=== PATIENT | male | born 1970 | race Caucasian/White ===

== ENCOUNTER 2024-04-28 13:47 | Observation (INO) | payer BC ==
--- NOTE | 2024-04-28 14:26 | ED ---
General Adult HPI - General Chief complaint: Chest Pain Stated complaint: chest pain Time Seen by Provider: 04/28/24 14:13 Source: EMS Mode of arrival: EMS Limitations: no limitations - History of Present Illness Initial comments: Dictation was produced using [employer] dictation software. please excuse any grammatical, word or spelling errors. Chief Complaint: 54-year-old male presents to the emergency department for chest pain History of Present Illness: Patient is a 54-year-old male presents to the emergency department for chest pain. Patient extensive cardiac history including bypass graft and failed grafting requiring stent placement. States that he had some sharp substernal pressure that caused some tightness in his jaw. States that reminds him of a previous heart attack he has had. Patient took a couple nitro which alleviated some of the pain however symptoms were strong enough that he came to the emergency room. Complains of some associated nausea. No diaphoresis. The ROS documented in this emergency department record has been reviewed and confirmed by me. Those systems with pertinent positive or negative responses have been documented in the HPI. All other systems are other negative and/or noncontributory. - Related Data Home Medications Medication Instructions Recorded Confirmed Aspirin EC [Ecotrin] 325 mg PO DAILY 04/28/24 04/28/24 Clopidogrel [Plavix] 75 mg PO DAILY 04/28/24 04/28/24 Ezetimibe [Zetia] 10 mg PO DAILY 04/28/24 04/28/24 Isosorbide Dinitrate [Isordil] 10 mg PO DIRECTED 04/28/24 04/28/24 Metoprolol Tartrate [Lopressor] 25 mg PO BID 04/28/24 04/28/24 Nitroglycerin Sl Tabs [Nitrostat] 0.4 mg SUBLINGUAL Q5M PRN 04/28/24 04/28/24 Rosuvastatin Calcium [Crestor] 40 mg PO DAILY 04/28/24 04/28/24 amLODIPine [Norvasc] 2.5 mg PO DAILY 04/28/24 04/28/24 Allergies Allergy/AdvReac Type Severity Reaction Status Date / Time No Known Allergies Allergy Verified 04/28/24 14:18 Review of Systems ROS Statement: Those systems with pertinent positive or pertinent negative responses have been documented in the HPI. ROS Other: All systems not noted in ROS Statement are negative. Past Medical History Additional Past Medical History / Comment(s): stent placed 04/2024. open heart sx 01/2024 History of Any Multi-Drug Resistant Organisms: None Reported Past Psychological History: No Psychological Hx Reported Smoking Status: Never smoker Past Alcohol Use History: Occasional Past Drug Use History: None Reported General Exam - General Exam Comments Initial Comments: PHYSICAL EXAM: General Impression: Alert and oriented x3, not in acute distress HEENT: Normocephalic atraumatic, extra-ocular movements intact, pupils equal and reactive to light bilaterally, mucous membranes moist. Cardiovascular: Heart regular rate and rhythm Chest: Able to complete full sentences, no retractions, no tachypnea Abdomen: abdomen soft, non-tender, non-distended, no organomegaly Musculoskeletal: Pulses present and equal in all extremities, no peripheral edema Motor: no focal deficits noted Neurological: CN II-XII grossly intact, no focal motor or sensory deficits noted Skin: Intact with no visualized rashes Psych: Normal affect and mood Limitations: no limitations Course Vital Signs 04/28/24 04/28/24 04/28/24 13:49 14:52 15:43 Temperature 98.3 F Pulse Rate 68 63 71 Respiratory 16 18 18 Rate Blood Pressure 115/90 124/74 118/85 O2 Sat by Pulse 100 99 98 Oximetry EKG Findings - EKG Comments: EKG Findings:: My EKG interpretation: Ventricular rate 60, sinus rhythm, right bundle branch block,. 179, QRS 125, QTc 451. No MI prolongation, no QTC prolongation, no ST or T-wave changes noted. Overall, this EKG is unremarkable Medical Decision Making - Medical Decision Making Was pt. sent in by a medical professional or institution (, PA, DECAL APPLIER, urgent care, hospital, or [facility]...) When possible be specific @ -No Did you speak to anyone other than the patient for history (EMS, parent, family, police, friend...)? What history was obtained from this source @ -No Did you review nursing and triage notes (agree or disagree)? Why? @ -I reviewed and agree with nursing and triage notes Were old charts reviewed (outside hosp., previous admission, EMS record, old EKG, old radiological studies, urgent care reports/EKG's, [facility] records)? Report findings @ -No old charts were reviewed Differential Diagnosis (chest pain, altered mental status, abdominal pain women, abdominal pain men, vaginal bleeding, musculoskeletal, weakness, fever, dyspnea, syncope, headache, dizziness, GI bleed, back pain, seizure, CVA, palpatations, mental health)? @ -Differential Chest Pain: Stable Angina, Unstable Angina, STEMI, NSTEMI Aortic Dissection, Pneumothorax, Musculoskeletal, Esophageal Spasm GERD, Cholecystitis, Pancreatitis, Zoster, this is not meant to be an all-inclusive list. EKG interpreted by me (3pts min.). @ -None done X-rays interpreted by me (1pt min.). @ -Chest x-ray shows no acute processes CT interpreted by me (1pt min.). @ -None done U/S interpreted by me (1pt. min.). @ -None done What testing was considered but not performed or refused? (CT, X-rays, U/S, labs)? Why? @ -None What meds were considered but not given or refused? Why? @ -None Was smoking cessation discussed for >3mins.? @ -No Were there social determinants of health that impacted care today? How? (Homelessness, low income, unemployed, alcoholism, drug addiction, transportation, low edu. Level, literacy, decrease access to med. care, intermediate, rehab)? @ -No Was there de-escalation of care discussed even if they declined (Discuss DNR or withdrawal of care, Hospice)? DNR status @ -No What co-morbidities impacted this encounter? (DM, HTN, Smoking, COPD, CAD, Cancer, CVA, ARF, Chemo, Hep., AIDS, mental health diagnosis, sleep apnea, morbid obesity)? @ -Coronary artery disease Was patient admitted / discharged? Hospital course, mention meds given and route, prescriptions, significant lab abnormalities, going to OR and other pertinent info. @ -See above Did you discuss the management of the patient with other professionals (professionals i.e. , PA, DECAL APPLIER, lab, RT, psych nurse, social media analyst, community aide, teacher, nuclear medicine officer, case making machine operator)? Give summary @ -54-year-old male with extensive cardiac history presents to the emergency department chest pain. Symptoms concerning for acute coronary syndrome. Vital signs stable. EKG is unremarkable. Laboratory evaluation obtained. Labs within acceptable limits. Troponin is negative. Patient given aspirin. Will be admitted observation with consultation cardiology Was critical care preformed (if so, how long)? @ -No Undiagnosed new problem with uncertain prognosis? @ -No Drug Therapy requiring intensive monitoring for toxicity (Heparin, Nitro, Insulin, Cardizem)? @ -No Were any procedures done? @ -No Diagnosis/symptom? Acute, or Chronic, or Acute on Chronic? Uncomplicated (without systemic symptoms) or Complicated (systemic symptoms)? @ -Chest pain Side effects of treatment? @ -No Exacerbation, Progression, or Severe Exacerbation? @ -No Poses a threat to life or bodily function? How? (Chest pain, [place], [place], pneumonia, PE, COPD, DKA, ARF, appy, cholecystitis, CVA, Diverticulitis, Homicidal, Suicidal, threat to staff... and all critical care pts) @ -yes - Lab Data Result diagrams: 04/28/24 14:23 04/28/24 14:23 Lab Results 04/28/24 04/28/24 04/28/24 Range/Units 14:23 14:23 14:23 WBC 6.2 (3.8-10.6) k/uL RBC 4.77 (4.30-5.90) m/uL Hgb 13.6 (13.0-17.5) gm/dL Hct 40.0 (39.0-53.0) % MCV 83.8 (80.0-100.0) fL MCH 28.5 (25.0-35.0) pg MCHC 34.0 (31.0-37.0) g/dL RDW 14.2 (11.5-15.5) % Plt Count 174 (150-450) k/uL MPV 8.8 Neutrophils % 54 % Lymphocytes % 34 % Monocytes % 7 % Eosinophils % 2 % Basophils % 0 % Neutrophils # 3.3 (1.3-7.7) k/uL Lymphocytes # 2.1 (1.0-4.8) k/uL Monocytes # 0.4 (0-1.0) k/uL Eosinophils # 0.1 (0-0.7) k/uL Basophils # 0.0 (0-0.2) k/uL PT 11.5 (10.0-12.5) sec INR 1.1 (<1.2) APTT 26.4 (22.0-30.0) sec Sodium 137 (137-145) mmol/L Potassium 3.9 (3.5-5.1) mmol/L Chloride 106 (98-107) mmol/L Carbon Dioxide 24 (22-30) mmol/L Anion Gap 7 mmol/L BUN 15 (9-20) mg/dL Creatinine 0.92 (0.66-1.25) mg/dL Est GFR (CKD-EPI)AfAm >90 (>60 ml/min/1.73 sqM) Est GFR (CKD-EPI)NonAf >90 (>60 ml/min/1.73 sqM) Glucose 89 (74-99) mg/dL Calcium 9.1 (8.4-10.2) mg/dL Magnesium 2.0 (1.6-2.3) mg/dL Total Bilirubin 0.8 (0.2-1.3) mg/dL AST 34 (17-59) U/L ALT 62 H (4-49) U/L Alkaline Phosphatase 67 (38-126) U/L Troponin I (0.000-0.034) ng/mL Total Protein 7.1 (6.3-8.2) g/dL Albumin 4.4 (3.5-5.0) g/dL 04/28/24 Range/Units 14:23 WBC (3.8-10.6) k/uL RBC (4.30-5.90) m/uL Hgb (13.0-17.5) gm/dL Hct (39.0-53.0) % MCV (80.0-100.0) fL MCH (25.0-35.0) pg MCHC (31.0-37.0) g/dL RDW (11.5-15.5) % Plt Count (150-450) k/uL MPV Neutrophils % % Lymphocytes % % Monocytes % % Eosinophils % % Basophils % % Neutrophils # (1.3-7.7) k/uL Lymphocytes # (1.0-4.8) k/uL Monocytes # (0-1.0) k/uL Eosinophils # (0-0.7) k/uL Basophils # (0-0.2) k/uL PT (10.0-12.5) sec INR (<1.2) APTT (22.0-30.0) sec Sodium (137-145) mmol/L Potassium (3.5-5.1) mmol/L Chloride (98-107) mmol/L Carbon Dioxide (22-30) mmol/L Anion Gap mmol/L BUN (9-20) mg/dL Creatinine (0.66-1.25) mg/dL Est GFR (CKD-EPI)AfAm (>60 ml/min/1.73 sqM) Est GFR (CKD-EPI)NonAf (>60 ml/min/1.73 sqM) Glucose (74-99) mg/dL Calcium (8.4-10.2) mg/dL Magnesium (1.6-2.3) mg/dL Total Bilirubin (0.2-1.3) mg/dL AST (17-59) U/L ALT (4-49) U/L Alkaline Phosphatase (38-126) U/L Troponin I <0.012 (0.000-0.034) ng/mL Total Protein (6.3-8.2) g/dL Albumin (3.5-5.0) g/dL Disposition Clinical Impression: Chest pain Disposition: ADMITTED IP TO THIS HOSP Condition: Fair Referrals: Juan Padilla MD [Primary Care Provider] - 1-2 days Decision Time: 15:51
[2024-04-28 14:30] LABS: Basophils % (A) 0 %; Eosinophils # (A) 0.1 k/uL (0-0.7); Eosinophils % (A) 2 %; HGB 13.6 gm/dL (13.0-17.5); Lymphocytes # (A) 2.1 k/uL (1.0-4.8); Lymphocytes % (A) 34 %; MCH 28.5 pg (25.0-35.0); MCV 83.8 fL (80.0-100.0); Mean Platelet Volume 8.8; Monocytes # (A) 0.4 k/uL (0-1.0); Monocytes % (A) 7 %; Neutrophils # (A) 3.3 k/uL (1.3-7.7); Neutrophils % (A) 54 %; Platelet Count 174 k/uL (150-450); RBC 4.77 m/uL (4.30-5.90); RDW 14.2 % (11.5-15.5); WBC 6.2 k/uL (3.8-10.6)
[2024-04-28] MEDS: NITROGLYCERIN OINT 1 INCH/GM PACKET TOPICAL STA (14:33)
[2024-04-28 14:43] LABS: INR 1.1 (<1.2); Partial Thromboplastin Time 26.4 sec (22.0-30.0); Prothrombin Time 11.5 sec (10.0-12.5)
--- NOTE | 2024-04-28 14:45 | XR ---
EXAMINATION TYPE: XR chest 2V DATE OF EXAM: 04/28/2024 COMPARISON: NONE CLINICAL INDICATION: Male, 54 years old with history of Chest Pain; , TECHNIQUE: XR chest 2V views of the chest. FINDINGS: The lungs are clear and there is no pneumothorax, pleural effusion, or focal pneumonia. Heart size normal and no overt failure. Osseous structures demonstrate hypertrophic and degenerative changes of the spine. Post median sternotomy changes. Atrial appendage clip. Biapical pleural thickening. IMPRESSION: 1. No acute process. [facility], , 04/28/2024 2:42 PM
[2024-04-28 14:59] LABS: ALT 62 U/L (4-49); AST 34 U/L (17-59); African American GFR (CKD) >90 (>60 ml/min/1.73 sqM); Albumin 4.4 g/dL (3.5-5.0); Alkaline Phosphatase 67 U/L (38-126); Anion Gap 7 mmol/L; Blood Urea Nitrogen 15 mg/dL (9-20); Calcium 9.1 mg/dL (8.4-10.2); Carbon Dioxide 24 mmol/L (22-30); Chloride 106 mmol/L (98-107); Glucose 89 mg/dL (74-99); Non-African American GFR(CKD) >90 (>60 ml/min/1.73 sqM); Potassium 3.9 mmol/L (3.5-5.1); Sodium 137 mmol/L (137-145); Total Bilirubin 0.8 mg/dL (0.2-1.3); Total Protein 7.1 g/dL (6.3-8.2)
[2024-04-28] MEDS ORDERED: NITROGLYCERIN SL TABS 0.4 MG TAB SUBLINGUAL PRN ×2 (15:48→16:15)
--- NOTE | 2024-04-28 16:23 | P.HPIM ---
History of Present Illness Chief Complaint: Chest pain This is a 54-year-old male with past medical history of coronary artery disease status post CABG performed in 2023, status post 2 failed grafts requiring angiography with PCI deployment x 2, hyperlipidemia, hypertension presents the emergency department due to unremitting chest pain. Patient states he was walking with his son, not to extremity was of the task for him and started developing anterior chest pain radiating to his jaw, it was substernal pressure- like sensation. Patient took 3 nitroglycerin tablets without any relief. His daughter started driving him to the emergency department but the pain got so bad that they called EMS who arrived and took him to the hospital for further evaluation. He has a very significant cardiac history given his age. He states that he had a CABG earlier in the year, underwent cardiac rehab and was doing well. Couple of months ago he started having chest pain, was found through a coronary angiogram that he had to graft from his CABG that failed necessitating PCI's. He has been compliant with all his medication, does not miss any doses. He just saw his superintendent maintenance airports on Friday who prescribed him isosorbide dinitrate but he has not been able to pick it up yet. No nausea no vomiting no fevers no chills. Review of Systems Review of systems negative except was pertinent positive in HPI Past Medical History Additional Past Medical History / Comment(s): stent placed 04/2024. open heart sx 01/2024 History of Any Multi-Drug Resistant Organisms: None Reported Past Psychological History: No Psychological Hx Reported Smoking Status: Never smoker Past Alcohol Use History: Occasional Past Drug Use History: None Reported Medications and Allergies Home Medications Medication Instructions Recorded Confirmed Type Aspirin EC [Ecotrin] 325 mg PO DAILY 04/28/24 04/28/24 History Clopidogrel [Plavix] 75 mg PO DAILY 04/28/24 04/28/24 History Ezetimibe [Zetia] 10 mg PO DAILY 04/28/24 04/28/24 History Isosorbide Dinitrate [Isordil] 10 mg PO DIRECTED 04/28/24 04/28/24 History Metoprolol Tartrate [Lopressor] 25 mg PO BID 04/28/24 04/28/24 History Nitroglycerin Sl Tabs [Nitrostat] 0.4 mg SUBLINGUAL Q5M PRN 04/28/24 04/28/24 History Rosuvastatin Calcium [Crestor] 40 mg PO DAILY 04/28/24 04/28/24 History amLODIPine [Norvasc] 2.5 mg PO DAILY 04/28/24 04/28/24 History Allergies Allergy/AdvReac Type Severity Reaction Status Date / Time No Known Allergies Allergy Verified 04/28/24 14:18 Physical Exam Vitals: Vital Signs Temp Pulse Resp BP Pulse Ox 04/28/24 15:43 71 18 118/85 98 04/28/24 14:52 63 18 124/74 99 04/28/24 13:49 98.3 F 68 16 115/90 100 Intake and Output 04/28/24 04/28/24 04/28/24 06:59 14:59 22:59 Other: Weight 102.058 kg General: [nontoxic], [no distress], [appears at stated age] Derm: [warm], [dry] Head: [atraumatic], [normocephalic], [symmetric] Eyes: [EOMI], [no lid lag], [anicteric sclera] Mouth: [no lip lesion], [mucus membranes moist] Cardiovascular: [S1S2 reg], [no murmur], [positive posterior tibial pulse bilateral], anterior chest wall scar from CABG well-healing Lungs: [CTA bilateral], [no rhonchi, no rales] , [no accessory muscle use] Abdominal: [soft], [ nontender to palpation], [no guarding], [no appreciable organomegaly] Ext: [no gross muscle atrophy], [no edema], [no contractures] Neuro: [ CN II-XI grossly intact], [no focal neuro deficits] Psych: [Alert], [oriented], [appropriate affect] Results CBC & Chem 7: 04/28/24 14:23 04/28/24 14:23 Labs: Abnormal Lab Results - Last 24 Hours (Table) 04/28/24 Range/Units 14:23 ALT 62 H (4-49) U/L Assessment and Plan Plan: Anginal chest pain Coronary artery disease status post CABG Recent occlusion/failure of 2 grafts from CABG, requiring 2 stent placements Hyperlipidemia Essential hypertension Consult placed to cardiology Reviewed EKG, noted right bundle branch block, unclear if finding is new Restart home medication including Zetia, atorvastatin, full dose aspirin, Plavix Initiated isosorbide dinitrate to be taken daily Nitroglycerin tabs ordered as needed chest pain Chest pain has greatly improved, still having some neck discomfort Heparin for DVT prophylaxis Troponins are negative, I do not believe the patient needs a heparin drip If chest pain returns, may benefit from a nitro drip Continuous monitoring of vital signs Cardiac telemetry
[2024-04-28] MEDS: ASPIRIN 81 MG PO STA (18:20)
[2024-04-28] MEDS: METOPROLOL TARTRATE 25 MG TAB PO SCH (20:10)
[2024-04-28] MEDS: EZETIMIBE 10 MG TAB PO SCH (20:10)
[2024-04-28] MEDS: ATORVASTATIN 80 MG TAB PO SCH (20:10)
[2024-04-28] MEDS: HEPARIN SODIUM,PORCINE 5,000 UNIT/ML 1 ML VIAL SQ SCH (20:10)
[2024-04-28] MEDS: ISOSORBIDE DINITRATE 10 MG TAB PO SCH (20:10)
[2024-04-28] MEDS: ACETAMINOPHEN TAB 325 MG TAB PO STA (21:41)
[2024-04-29] MEDS ORDERED: ASPIRIN 325 MG TAB PO SCH (09:00)
[2024-04-29] MEDS: amLODIPine 2.5 MG TAB PO SCH (09:12)
[2024-04-29] MEDS: ACETAMINOPHEN TAB 325 MG TAB PO PRN (09:12)
[2024-04-29] MEDS: CLOPIDOGREL 75 MG TAB PO SCH (09:12)
[2024-04-29] MEDS: ASPIRIN 325 MG TAB PO SCH (09:12)
[2024-04-29 10:24] LABS: Chol/HDL Ratio 2.43 Ratio; LDL Cholesterol,Calculated 40.1 mg/dL (0.0-131.0)
--- NOTE | 2024-04-29 13:39 | P.PN ---
Subjective Progress Note Date: 04/29/24 Principal diagnosis: Chest pain The patient is comfortable not currently painful Objective - Vital Signs Vital signs: Vital Signs Temp 97.7 F 04/29/24 07:00 Pulse 76 04/29/24 07:00 Resp 16 04/29/24 07:00 BP 123/76 04/29/24 07:00 Pulse Ox 98 04/29/24 11:36 FiO2 21 04/29/24 11:36 Intake & Output 04/28/24 04/29/24 04/29/24 18:59 06:59 18:59 Intake Total 480 Balance 480 Weight 102.058 kg Intake: Oral 480 Other: Voiding Method Toilet Toilet # Voids 2 - Constitutional General appearance: Present: no acute distress - Respiratory Respiratory: bilateral: CTA - Cardiovascular Rhythm: regular - Gastrointestinal General gastrointestinal: Present: normal bowel sounds - Labs CBC & Chem 7: 04/28/24 14:23 04/28/24 14:23 Labs: Abnormal Lab Results - Last 24 Hours (Table) 04/28/24 Range/Units 14:23 ALT 62 H (4-49) U/L Assessment and Plan (1) Chest pain Narrative/Plan: Cardiology still pending, Nitro prn, on isosorbide dinitrate Current Visit: Yes Status: Acute Code(s): R07.9 - CHEST PAIN, UNSPECIFIED SNOMED Code(s): 28934736 Plan: Chest pain controlled, await further input from Cardiology
--- NOTE | 2024-04-29 13:47 | P.CRDCN ---
History of Present Illness Consult date: 04/29/24 Requesting physician: Max Schafer Reason for Consult (text): chest pain Chief complaint: chest pain History of present illness: This is a pleasant 54-year-old male patient of Dr. Lawson at [facility] with past medical history of CAD with CABG in December of this year who has had continued chest discomfort and jaw pain and recently underwent cardiac catheterization on April 20 at which time he underwent PCI of one of the grafts and told to have some blockage not requiring intervention of one of the other grafts. His CABG was 3 vessels with a radial graft 1 vein graft and a MORALES. The exact details are not available to me this was done at [place] on with Dr. [place]. He followed up with his bacteriologist dairy on Friday of this week at which time he was prescribed an oral nitrate but had not yet received the prescription. Yesterday due to running errands he did not take his medications in the morning. He developed sudden onset chest discomfort that was pretty severe. He took nitroglycerin x 3 without relief and was driving to the hospital but subsequently stopped and called EMS due to worsening pain. EKG on admission showed sinus mechanism with right bundle branch block, no previous EKG available for comparison. Troponins have been negative x 3. At the time of my exam he has chest pain-free. Diagnostics -EKG: Sinus mechanism with right bundle jamey block -Chest x-ray: No acute process -Laboratory studies: Unremarkable except for ALT 62, troponins negative x 3, LDL 40.1. -Home cardiac medications: Aspirin 325 mg p.o. daily, amlodipine 2.5 mg p.o. daily, rosuvastatin 40 mg p.o. daily, metoprolol tartrate 25 mg p.o. twice daily, Plavix 75 mg daily, ezetimibe 10 mg daily and isosorbide dinitrate 10 mg p.o. twice daily which he had not started yet. -Prior cardiac testing including CABG report are unavailable to me Review Of Systems: At the time of my exam: CONSTITUTIONAL: Denies fever or chills. HEENT: Denies blurred vision, vision changes. Complains of headache CARDIOVASCULAR: Denies chest pain. Denies orthopnea. Denies PND. Denies palpitations, dizziness, or syncope. RESPIRATORY: Denies shortness of breath, wheezing, or cough. Denies hemoptysis. GASTROINTESTINAL: Denies abdominal pain. Denies nausea or vomiting. Denies bleeding. HEMATOLOGIC: Denies bleeding disorders. GENITOURINARY: Denies hematuria. SKIN: Denies puritis. Denies rash. PHYSICAL EXAMINATION: This is a 54-year-old male in no apparent distress at the time of my examination. VITAL SIGNS: Reviewed. HEENT: Head is atraumatic, normocephalic. Pupils are equal, round. Sclerae anicteric. Conjunctivae are clear. Mucous membranes of the mouth are moist. Neck is supple. There is no elevated jugular venous pressure. No carotid bruit is heard. CHEST EXAMINATION: Clear to auscultation bilaterally. No wheezes rales or rhonchi. Respirations even and nonlabored. HEART EXAMINATION: Heart regular, positive S1 and S2. No S3. No S4. No clicks, rubs or murmurs. ABDOMEN: Soft, nontender. Bowel sounds are heard. No organomegaly noted. EXTREMITIES: 2+ peripheral pulses with no evidence of peripheral edema and no calf tenderness noted. NEUROLOGIC EXAMINATION: Patient is awake, alert and oriented x3. Assessment: 1. Chest pain, acute coronary event has been ruled out, troponins negative x 3 2. CAD with prior CABG x 3 and subsequent stenting on the of this month 3. Hypertension 4. Hyperlipidemia Plan: From cardiology's perspective start patient on oral nitrate as planned by primary bacteriologist dairy. The patient is scheduled to see his primary bacteriologist dairy on the . He will keep this appointment. At this time there is no indication for further cardiac workup. Thank you kindly for this consultation. Nurse practitioner note has been reviewed, I agree with documented findings and plan of care. Patient was seen and examined. Past Medical History Additional Past Medical History / Comment(s): Cardiac stent placed 04/2024. Three vessel CABG 01/2024. History of Any Multi-Drug Resistant Organisms: None Reported Past Surgical History: Coronary Bypass/CABG, Heart Catheterization With Stent, Orthopedic Surgery Additional Past Surgical History / Comment(s): Cardiac stent placed 04/2024 [facility]. Three vessel CABG 01/2024 [facility]. Knee surgery 30 years ago. Past Anesthesia/Blood Transfusion Reactions: No Reported Reaction Date of Last Stent Placement:: 04/20/2024 Past Psychological History: No Psychological Hx Reported Smoking Status: Never smoker Past Alcohol Use History: Occasional Past Drug Use History: None Reported Medications and Allergies Home Medications Medication Instructions Recorded Confirmed Type Aspirin EC [Ecotrin] 325 mg PO DAILY 04/28/24 04/28/24 History Clopidogrel [Plavix] 75 mg PO DAILY 04/28/24 04/28/24 History Ezetimibe [Zetia] 10 mg PO DAILY 04/28/24 04/28/24 History Isosorbide Dinitrate [Isordil] 10 mg PO DIRECTED 04/28/24 04/28/24 History Metoprolol Tartrate [Lopressor] 25 mg PO BID 04/28/24 04/28/24 History Nitroglycerin Sl Tabs [Nitrostat] 0.4 mg SUBLINGUAL Q5M PRN 04/28/24 04/28/24 History Rosuvastatin Calcium [Crestor] 40 mg PO DAILY 04/28/24 04/28/24 History amLODIPine [Norvasc] 2.5 mg PO DAILY 04/28/24 04/28/24 History Furosemide [Lasix] 40 mg PO BID 04/29/24 04/29/24 History Furosemide [Lasix] 40 mg PO BID 04/29/24 04/29/24 History Allergies Allergy/AdvReac Type Severity Reaction Status Date / Time No Known Allergies Allergy Verified 04/28/24 14:18 Physical Exam Vitals: Vital Signs Temp Pulse Pulse Resp BP BP Pulse Ox 04/29/24 11:36 98 04/29/24 07:00 97.7 F 76 16 123/76 96 04/29/24 02:00 97.8 F 70 17 113/66 97 04/28/24 19:41 97.9 F 63 17 113/72 98 04/28/24 17:30 97.6 F 66 16 110/65 99 04/28/24 17:03 98.4 F 66 18 106/74 99 04/28/24 15:43 71 18 118/85 98 04/28/24 14:52 63 18 124/74 99 04/28/24 13:49 98.3 F 68 16 115/90 100 FiO2 04/29/24 11:36 21 04/29/24 07:00 04/29/24 02:00 04/28/24 19:41 04/28/24 17:30 04/28/24 17:03 04/28/24 15:43 04/28/24 14:52 04/28/24 13:49 Intake and Output 04/28/24 04/29/24 04/29/24 22:59 06:59 14:59 Intake Total 480 Balance 480 Intake: Oral 480 Other: Voiding Method Toilet Toilet # Voids 2 2 Weight 102.058 kg Results 04/28/24 14:23 04/28/24 14:23 Cardiac Enzymes 04/28/24 04/28/24 04/28/24 Range/Units 14:23 14:23 17:42 AST 34 (17-59) U/L Troponin I <0.012 <0.012 (0.000-0.034) ng/mL 04/28/24 Range/Units 21:19 AST (17-59) U/L Troponin I <0.012 (0.000-0.034) ng/mL Coagulation 04/28/24 Range/Units 14:23 PT 11.5 (10.0-12.5) sec APTT 26.4 (22.0-30.0) sec Lipids 04/29/24 Range/Units 04:48 Triglycerides 103.00 (0.00-149.00) mg/dL Cholesterol 103.00 (0.00-200.00) mg/dL HDL Cholesterol 42.30 (40.00-60.00) mg/dL Cholesterol/HDL Ratio 2.43 Ratio CBC 04/28/24 Range/Units 14:23 WBC 6.2 (3.8-10.6) k/uL RBC 4.77 (4.30-5.90) m/uL Hgb 13.6 (13.0-17.5) gm/dL Hct 40.0 (39.0-53.0) % Plt Count 174 (150-450) k/uL Comprehensive Metabolic Panel 04/28/24 Range/Units 14:23 Sodium 137 (137-145) mmol/L Potassium 3.9 (3.5-5.1) mmol/L Chloride 106 (98-107) mmol/L Carbon Dioxide 24 (22-30) mmol/L BUN 15 (9-20) mg/dL Creatinine 0.92 (0.66-1.25) mg/dL Glucose 89 (74-99) mg/dL Calcium 9.1 (8.4-10.2) mg/dL AST 34 (17-59) U/L ALT 62 H (4-49) U/L Alkaline Phosphatase 67 (38-126) U/L Total Protein 7.1 (6.3-8.2) g/dL Albumin 4.4 (3.5-5.0) g/dL Current Medications Generic Name Dose Route Start Last Admin Trade Name Freq PRN Reason Stop Dose Admin Acetaminophen 650 mg 04/29/24 09:07 04/29/24 09:12 Acetaminophen Tab 325 Mg Tab PO 650 mg Q6HR PRN Administration Fever and/ or Pain Amlodipine Besylate 2.5 mg 04/29/24 09:00 04/29/24 09:12 Amlodipine 2.5 Mg Tab PO 2.5 mg DAILY [facility] Administration Aspirin 325 mg 04/29/24 09:00 04/29/24 09:12 Aspirin 325 Mg Tab PO 325 mg DAILY [facility] Administration Atorvastatin Calcium 80 mg 04/28/24 21:00 04/28/24 20:10 Atorvastatin 80 Mg Tab PO 80 mg HS [facility] Administration Clopidogrel Bisulfate 75 mg 04/29/24 09:00 04/29/24 09:12 Clopidogrel 75 Mg Tab PO 75 mg DAILY [facility] Administration Ezetimibe 10 mg 04/28/24 21:00 04/28/24 20:10 Ezetimibe 10 Mg Tab PO 10 mg HS [facility] Administration Heparin Sodium (Porcine) 5,000 unit 04/28/24 21:00 04/29/24 09:14 Heparin Sodium,Porcine 5,000 Unit/Ml 1 Ml Vial SQ Not Given Q12HR [facility] Isosorbide Dinitrate 10 mg 04/28/24 21:00 04/29/24 09:13 Isosorbide Dinitrate 10 Mg Tab PO 10 mg BID [facility] Administration Metoprolol Tartrate 25 mg 04/28/24 21:00 04/29/24 09:13 Metoprolol Tartrate 25 Mg Tab PO 25 mg BID [facility] Administration Nitroglycerin 0.4 mg 04/28/24 16:15 Nitroglycerin Sl Tabs 0.4 Mg Tab SUBLINGUAL Q5M PRN Chest Pain Intake and Output 04/28/24 04/29/24 04/29/24 22:59 06:59 14:59 Intake Total 480 Balance 480 Intake: Oral 480 Other: Voiding Method Toilet Toilet # Voids 2 2 Weight 102.058 kg 04/28/24 14:23 04/28/24 14:23
[2024-04-29 13:57] VITALS: BP 105/72; PULSE 65; RESP 15; TEMP 98
--- NOTE | 2024-04-29 14:13 | P.DS ---
Providers Date of admission: 04/28/24 15:49 Expected date of discharge: 04/29/24 Attending physician: Max Schafer Consults: 04/28/24 15:48 Consult Physician Urgent Consulting Provider: Lia Willis Consult Reason/Comments: chest pain Do you want consulting provider notified?: Yes Primary care physician: Juan Padilla - Discharge Diagnosis(es) (1) Chest pain Current Visit: Yes Status: Acute Hospital Course: The patient was monitored overnight. He was seen by Cardiology. Medications were adjusted inculding the initiation of Isosbide which the patient has not filled prior to his hospitalization. He denied chest pain and is stable for discharge Time 32 minutes Patient Condition at Discharge: Good Plan - Discharge Summary Discharge Rx Participant: No New Discharge Prescriptions: No Action Aspirin EC [Ecotrin] 325 mg PO DAILY amLODIPine [Norvasc] 2.5 mg PO DAILY Clopidogrel [Plavix] 75 mg PO DAILY Furosemide [Lasix] 40 mg PO BID Rosuvastatin Calcium [Crestor] 40 mg PO DAILY Metoprolol Tartrate [Lopressor] 25 mg PO BID Nitroglycerin Sl Tabs [Nitrostat] 0.4 mg SUBLINGUAL Q5M PRN PRN Reason: Chest Pain Isosorbide Dinitrate [Isordil] 10 mg PO DIRECTED Ezetimibe [Zetia] 10 mg PO DAILY Furosemide [Lasix] 40 mg PO BID Discharge Medication List Aspirin EC [Ecotrin] 325 mg PO DAILY 04/28/24 [History] Clopidogrel [Plavix] 75 mg PO DAILY 04/28/24 [History] Ezetimibe [Zetia] 10 mg PO DAILY 04/28/24 [History] Isosorbide Dinitrate [Isordil] 10 mg PO DIRECTED 04/28/24 [History] Metoprolol Tartrate [Lopressor] 25 mg PO BID 04/28/24 [History] Nitroglycerin Sl Tabs [Nitrostat] 0.4 mg SUBLINGUAL Q5M PRN 04/28/24 [History] Rosuvastatin Calcium [Crestor] 40 mg PO DAILY 04/28/24 [History] amLODIPine [Norvasc] 2.5 mg PO DAILY 04/28/24 [History] Furosemide [Lasix] 40 mg PO BID 04/29/24 [History] Furosemide [Lasix] 40 mg PO BID 04/29/24 [History] Follow up Appointment(s)/Referral(s): Juan Padilla MD [Primary Care Provider] - 1-2 days
[2024-04-29] MEDS ORDERED: FUROSEMIDE 40 MG TAB PO SCH (16:00)
== END 2024-04-29 14:30 | disposition home or self-care (01) ==
LOC: EC 13:47 → 6NMEDSUR 15:49
PROVIDERS: ADMIT Student in an Organized Health Care Education/Training Program; ATTEND Student in an Organized Health Care Education/Training Program
DX: R07.9 Chest pain, unspecified (principal); I25.10 Atherosclerotic heart disease of native coronary artery without angina pectoris; I10 Essential (primary) hypertension; E78.5 Hyperlipidemia, unspecified; I25.2 Old myocardial infarction; Z95.5 Presence of coronary angioplasty implant and graft; Z79.82 Long term (current) use of aspirin; Z79.02 Long term (current) use of antithrombotics/antiplatelets; Z79.899 Other long term (current) drug therapy
CPT/HCPCS: 96372; 99285; 36415; 94760; 93005; 80061; 80053; 83735; 84484; 85025; 85610; 85730; 71046; G0378 ×2; J1644